=== PATIENT | male | born 1985 | race Caucasian/White ===

== ENCOUNTER 2017-10-26 19:28 | Emergency (ER) | payer SELFPAY ==
[~2017-10-26] VITALS: Ht 172.7 cm; Wt 108.3 kg
[2017-10-26 19:39] VITALS: TEMP 36.6; Ht 172.7 cm; Wt 108.3 kg
[2017-10-26] MEDS ORDERED: LIDOCAINE HCL 2% VISC SOLN 20 ML UDC PO STA (19:56)
[2017-10-26] MEDS ORDERED: ALUMINUM/MAGNESIUM SUSP 30 ML UDC PO STA (19:56)
[2017-10-26 20:36] LABS: BASO % 0.1 %; BASO ABS # 0.01 K/uL (0-0.2); EOS % 0.1 %; EOS ABS # 0.01 K/uL (0-0.5); HEMATOCRIT 46.8 % (42-52); IG# 0.04 K/uL (0.00-0.02); LYMPH ABS # 1.31 K/uL (1.2-3.4); MEAN CORPUSCULAR HEMOGLOBIN 30.5 pg (25-34); MEAN CORPUSCULAR HGB CONC 36.3 g/dl (32-36); MEAN PLATELET VOLUME 12.2 fL (7.4-10.4); MONO % 6.6 %; MONO ABS # 0.96 K/uL (0.11-0.59); NEUT % 83.9 %; NEUT ABS # 12.15 K/uL (1.4-6.5); PLATELET COUNT 207 K/uL (130-400); RED CELL DISTRIBUTION WIDTH CV 12.8 % (11.5-14.5); RED CELL DISTRIBUTION WIDTH SD 38.2 fL (36.4-46.3); WHITE BLOOD COUNT 14.48 K/uL (4.8-10.8)
[2017-10-26 20:45] LABS: PTT PATIENT 22.9 SECONDS (21.0-31.0)
[2017-10-26 20:55] LABS: ALBUMIN 4.8 gm/dl (3.4-5.0); CALCIUM 9.5 mg/dl (8.5-10.1); CREATININE 1.8 mg/dl (0.60-1.40); POTASSIUM 3.4 mmol/L (3.5-5.1); TOTAL PROTEIN 8.2 gm/dl (6.4-8.2)
--- NOTE | 2017-10-26 21:26 | DIAGNOSTIC IMAGING REPORT ---
BILIARY ULTRASOUND CLINICAL HISTORY: Epigastric pain COMPARISON STUDY: No previous studies for comparison. FINDINGS: The pancreas was not visualized due to overlying bowel gas shadowing. The liver was of increased echogenicity, likely secondary to hepatic steatosis. There is suspected focal fatty sparing adjacent to the gallbladder. The gallbladder appears sonographically normal. No stones are visualized. There is no gallbladder wall thickening and no evidence of pericholecystic fluid. There was no ductal dilatation. The common bile duct measures 3 mm. There is no right-sided hydronephrosis. IMPRESSION: 1. Nondiagnostic evaluation the pancreas 2. Ultrasonographically normal gallbladder. No evidence of ductal dilatation 3. Increased hepatic echogenicity, a nonspecific finding most often seen in hepatic steatosis Electronically signed by: Layton Whittaker M.D. 10/26/2017 9:25 PM Dictated Date/Time: 10/26/2017 9:24 PM
[2017-10-26] MEDS ORDERED: SODIUM CHLORIDE 0.9% 1000ML 1,000 ML IV STA (21:29)
[2017-10-26] MEDS ORDERED: FAMOTIDINE 20MG/5ML IV PUSH IV STA (21:51)
--- NOTE | 2017-10-26 21:56 | DIAGNOSTIC IMAGING REPORT ---
CHEST 2 VIEWS ROUTINE CLINICAL HISTORY: Chest and epigastric pain COMPARISON STUDY: 09/04/2009 FINDINGS: The cardiac and mediastinal contours are normal. There is no evidence of focal pulmonary consolidation. There is no evidence of failure. No pleural effusions are visualized.[ There is no free intraperitoneal air IMPRESSION: No active disease in the chest. Electronically signed by: Layton Whittaker M.D. 10/26/2017 9:54 PM Dictated Date/Time: 10/26/2017 9:54 PM
[2017-10-26 23:35] VITALS: BP 158/95; PULSE 89; O2SAT 97
--- NOTE | 2017-10-27 01:10 | EMERGENCY ROOM VISIT NOTE ---
History Report prepared by Che: Robert Mittal Under the Supervision of: Dr. Alexander Morales M.D. First contact with patient: 19:45 Chief Complaint: CHEST PAIN Stated Complaint: HIGH BP, CHEST PAIN History of Present Illness The patient is a 32 year old male who presents to the Emergency Room with complaints of discomfort in the upper abdomen along with light headedness and dizziness. The symptoms began a couple weeks ago and came back 5 days ago. The patient states that four days ago he went to [facility] and from there was sent to [facility] where they ran tests and blood work showing high blood pressure and low potassium. He left there with a prescription for Lisinopril and Celexa. He states fatty foods makes the discomfort worse but Pepcid AC relieves it, so he has been trying to cut back on fatty foods. He had similar symptoms in 2009 and was treated with Pepcid AC at that time. 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 He went over to see his neighbor who said he was very diaphoretic and pale so she took his blood pressure and it was 189/111. She gave him her daughter's Vasotec and 4 baby aspirin and came with him here. The patient states he has a family history of CAD and SC with his mother passing away at 45 years old from a SC, although he states he has never had a stress test. The patient denies any nausea, vomiting, or diarrhea, urinary symptoms, leg swelling and smoking tobacco. He denies any pain or discomfort in his chest. His epigastric pain does not radiate. Source of History: patient Onset: 5 days ago Position: abdomen Quality: other (Gas like) Timing: constant Modifying Factors (Relieving): eating Associated Symptoms: + SOB, + weakness, No nausea, No vomiting, No diarrhea , No urinary symptoms Review of Systems See HPI for pertinent positives & negatives. A total of 10 systems reviewed and were otherwise negative. Past Medical & Surgical Medical Problems: (1) Hypertension Family History FH: myocardial infarction Heart disease Social History Smoking Status: Never Smoker Occupation Status: employed Current/Historical Medications Miscellaneous Medications None (Patient States No Home Meds) Allergies Uncoded Allergies: NKDA (Allergy, Mild, 12/15/06) Physical Exam Vital Signs Date Time Temp Pulse Resp B/P (MAP) Pulse Ox O2 Delivery O2 Flow Rate FiO2 10/26/17 23:35 89 18 158/95 97 Room Air 10/26/17 23:19 99 10/26/17 22:14 99 18 142/88 98 Room Air 10/26/17 19:53 102 10/26/17 19:39 36.6 104 18 160/104 96 Room Air Physical Exam Constitutional: Vital signs reviewed. Eyes: Pupils are equal round reactive to light. Conjunctiva are noninjected. ENT: Pharynx is clear without erythema or exudate. Mucous membranes are moist. Neck supple without meningeal signs. Respiratory: Clear to auscultation bilaterally. Breath sounds are equal bilaterally. Cardiovascular: Regular rate and rhythm. No rubs or gallops. GI: Soft and nondistended. Epigastric tenderness, no Ji's sign. Bowel sounds are present. Musculoskeletal: No peripheral edema. No lower extremity tenderness. Integumentary: No cyanosis. Neurological: The patient is awake and alert. No focal deficits. Psychiatric: Very anxious appearing. Medical Decision & Procedures ER Provider Diagnostic Interpretation: Radiology results as stated below per my review and the radiologist's interpretation: BILIARY ULTRASOUND CLINICAL HISTORY: Epigastric pain COMPARISON STUDY: No previous studies for comparison. FINDINGS: The pancreas was not visualized due to overlying bowel gas shadowing. The liver was of increased echogenicity, likely secondary to hepatic steatosis. There is suspected focal fatty sparing adjacent to the gallbladder. The gallbladder appears sonographically normal. No stones are visualized. There is no gallbladder wall thickening and no evidence of pericholecystic fluid. There was no ductal dilatation. The common bile duct measures 3 mm. There is no right-sided hydronephrosis. IMPRESSION: 1. Nondiagnostic evaluation the pancreas 2. Ultrasonographically normal gallbladder. No evidence of ductal dilatation 3. Increased hepatic echogenicity, a nonspecific finding most often seen in hepatic steatosis Electronically signed by: Layton Whittaker M.D. 10/26/2017 9:25 PM Dictated Date/Time: 10/26/2017 9:24 PM CHEST 2 VIEWS ROUTINE CLINICAL HISTORY: Chest and epigastric pain COMPARISON STUDY: 09/04/2009 FINDINGS: The cardiac and mediastinal contours are normal. There is no evidence of focal pulmonary consolidation. There is no evidence of failure. No pleural effusions are visualized.[ There is no free intraperitoneal air IMPRESSION: No active disease in the chest. Electronically signed by: Layton Whittaker M.D. 10/26/2017 9:54 PM Dictated Date/Time: 10/26/2017 9:54 PM Laboratory Results 10/26/17 20:13 Red Blood Count 5.57, Mean Corpuscular Volume 84.0, Mean Corpuscular Hemoglobin 30.5, Mean Corpuscular Hemoglobin Concent 36.3, Mean Platelet Volume 12.2, Neutrophils (%) (Auto) 83.9, Lymphocytes (%) (Auto) 9.0, Monocytes (%) (Auto) 6.6, Eosinophils (%) (Auto) 0.1, Basophils (%) (Auto) 0.1, Neutrophils # (Auto) 12.15, Lymphocytes # (Auto) 1.31, Monocytes # (Auto) 0.96, Eosinophils # (Auto) 0.01, Basophils # (Auto) 0.01 10/26/17 20:13 Test 10/26/17 20:13 10/26/17 20:30 10/26/17 22:07 10/26/17 23:01 White Blood Count 14.48 K/uL (4.8-10.8) Red Blood Count 5.57 M/uL (4.7-6.1) Hemoglobin 17.0 g/dL (14.0-18.0) Hematocrit 46.8 % (42-52) Mean Corpuscular Volume 84.0 fL (80-100) Mean Corpuscular Hemoglobin 30.5 pg (25-34) Mean Corpuscular Hemoglobin Concent 36.3 g/dl (32-36) Platelet Count 207 K/uL (130-400) Mean Platelet Volume 12.2 fL (7.4-10.4) Neutrophils (%) (Auto) 83.9 % Lymphocytes (%) (Auto) 9.0 % Monocytes (%) (Auto) 6.6 % Eosinophils (%) (Auto) 0.1 % Basophils (%) (Auto) 0.1 % Neutrophils # (Auto) 12.15 K/uL (1.4-6.5) Lymphocytes # (Auto) 1.31 K/uL (1.2-3.4) Monocytes # (Auto) 0.96 K/uL (0.11-0.59) Eosinophils # (Auto) 0.01 K/uL (0-0.5) Basophils # (Auto) 0.01 K/uL (0-0.2) RDW Standard Deviation 38.2 fL (36.4-46.3) RDW Coefficient of Variation 12.8 % (11.5-14.5) Immature Granulocyte % (Auto) 0.3 % Immature Granulocyte # (Auto) 0.04 K/uL (0.00-0.02) Prothrombin Time 11.0 SECONDS (9.0-12.0) Prothromb Time International Ratio 1.0 (0.9-1.1) Activated Partial Thromboplast Time 22.9 SECONDS (21.0-31.0) Partial Thromboplastin Ratio 0.9 Anion Gap 15.0 mmol/L (3-11) Est Creatinine Clear Calc Drug Dose 70.3 ml/min Estimated GFR () 56.5 Estimated GFR (Non- 48.7 BUN/Creatinine Ratio 14.5 (10-20) Calcium Level 9.5 mg/dl (8.5-10.1) Total Bilirubin 1.1 mg/dl (0.2-1) Direct Bilirubin 0.3 mg/dl (0-0.2) Aspartate Amino Transf (AST/SGOT) 16 U/L (15-37) Alanine Aminotransferase (ALT/SGPT) 53 U/L (12-78) Alkaline Phosphatase 78 U/L (45-117) Total Creatine Kinase 114 U/L (39-308) Total Protein 8.2 gm/dl (6.4-8.2) Albumin 4.8 gm/dl (3.4-5.0) Lipase 84 U/L (73-393) Urine Color DK YELLOW Urine Appearance CLOUDY (CLEAR) Urine pH 5.0 (4.5-7.5) Urine Specific [place] 1.027 (1.000-1.030) Urine Protein 1+ (NEG) Urine Glucose (UA) NEG (NEG) Urine Ketones 3+ (NEG) Urine Occult Blood NEG (NEG) Urine Nitrite NEG (NEG) Urine Bilirubin NEG (NEG) Urine Urobilinogen NEG (NEG) Urine Leukocyte Esterase TRACE (NEG) Urine WBC (Auto) 1-5 /hpf (0-5) Urine RBC (Auto) 0-4 /hpf (0-4) Urine Hyaline Casts (Auto) >30 /lpf (0-5) Urine Epithelial Cells (Auto) >30 /lpf (0-5) Urine Bacteria (Auto) NEG (NEG) Urine Renal Epithelial Cells 0-5 /lpf (0-5) Urine Pathogenic Casts 1-5 GRANULAR CASTS /lpf (0) Urine Mucus PRESENT (NONE PRSENT) Venous Blood pH 7.51 (7.36-7.41) Venous Blood Partial Pressure CO2 26 mmHg (38.0-50.0) Venous Blood Partial Pressure O2 52 mmHg Venous Blood HCO3 20 mmol/L Venous Blood Oxygen Saturation 88.8 % Venous Blood Base Excess -0.8 mEq/L Bedside Troponin I < 0.030 ng/ml (0-0.045) Laboratory results as reviewed by me. Medications Administered Medications (Trade) Dose Ordered Sig/[place] Route Start Time Stop Time Status Last Admin Dose Admin Lidocaine HCl (Viscous Lidocaine 2% Soln) 10 ml NOW STAT PO 10/26/17 19:56 10/26/17 19:58 DC 10/26/17 20:09 10 ML Al Hydroxide/Mg Hydroxide (Maalox Susp) 30 ml NOW STAT PO 10/26/17 19:56 10/26/17 19:58 DC 10/26/17 20:09 30 ML Sodium Chloride 1,000 ml @ 999 mls/hr Q1H1M STAT IV 10/26/17 21:29 10/26/17 22:29 DC 10/26/17 22:10 999 MLS/HR Famotidine (Pepcid 20mg Iv Push) 20 mg ONE STAT IV 10/26/17 21:51 10/26/17 21:52 DC 10/26/17 22:09 20 MG ECG Per My Interpretation Indication: abdominal pain Rate (beats per minute): 96 Rhythm: normal sinus Findings: RBBB (Incomplete), other (No ST elevation, No PVC, Wavy baseline in leads V4-V6 limiting interpretation) Change: Repeat EKG: Normal Sinus Rhythm, rate of 99, Incomplete RBBB, No ST elevation, Biphasic T waves in leads V3-V6 Unchanged from August 2009 ED Course 1946: The patient was evaluated in room B11. A complete history and physical exam was performed. 2146: I reevaluated the patient and talked to him about the tests results. He states he is still experiencing gas pressure. 2237: I reevaluated the patient and he states he burps and is feeling better. I ordered a repeat EKG and Troponin. 2315: I checked on the patient and his epigastric pain is gone. We discussed the EKG results and I recommended he have an outpatient stress test due to his family history. I also recommended to have blood test repeated due to elevated creatinine. 2336: Upon reevaluation, the patient appeared to have improvement of his symptoms. I discussed tonight's findings with the patient. He verbalized agreement of the treatment plan. He was discharged home. Medical Decision This is a 32-year-old male who presents with epigastric abdominal pain. Differential diagnosis includes peptic ulcer disease, gastritis, cholelithiasis , cholecystitis, pancreatitis, cardiac. I did perform a limited focused review of portions of the patient's old chart on the electronic medical record. The patient has one recent pertinent visit to this hospital in 2009 for chest pain. He was discharged home after an unremarkable cardiac work up. I did evaluate the patient as noted above. The patient is presenting with epigastric abdominal pain intermittently. He had similar pain back in 2009 and was treated with Pepcid AC which seemed to work. He states that his pain is better after he takes Pepcid AC and is worse after eating certain types of food , especially fatty foods. He denies having any chest discomfort today. He states it is all localized to the epigastric region. IV access was established. The patient was placed on a continuous conference director. I did order and personally review the patient's 12-lead EKG and chest x-ray as described above. His twelve-lead EKG demonstrates some nonspecific T-wave changes in the lateral leads but this was present back in 2009. He also had a incomplete right bundle branch block which is also unchanged from 2010. Chest x -ray is unremarkable. I did order and review the patient's blood work as noted in the electronic medical record. Troponin 2 is negative. His creatinine is elevated at 1.8. He does have a low CO2 but he has been hyperventilating. The patient is quite anxious. VBG does not demonstrate any acidosis. I did order an ultrasound of the right upper quadrant. I did review the images myself as well as the radiology report as described above. I did treat the patient with a GI cocktail and Pepcid IV. On reevaluation the patient's discomfort is completely resolved. I did recommend he follow closely with his doctor for further evaluation. He was advised to continue taking Pepcid AC for his discomfort. He did state that he burped an x-ray and that seemed to make him feel better as well. He was told that he should consider having an outpatient cardiac stress test given his family history. He was also advised to have his doctor repeat his creatinine which is elevated today. He was also advised to drink plenty of fluids. He was discharged in good condition. Medication Reconcilliation Current Medication List: was personally reviewed by me Blood Pressure Screening Patient's blood pressure: Elevated blood pressure Blood pressure disposition: Referred to PCP Impression Primary Impression: Epigastric abdominal pain Additional Impression: Elevated serum creatinine Scribe Attestation The scribe's documentation has been prepared under my direct and personally reviewed by me in its entirety. I confirm that the note above accurately reflects all work, treatment, procedures, and medical decision making performed by me. Departure Information Dispostion Home / Self-Care Referrals No Doctor, Assigned (PCP) Forms Call Back Authorization, HOME CARE DOCUMENTATION FORM, IMPORTANT VISIT INFORMATION Patient Instructions My [facility] Additional Instructions You have been examined and treated today on an emergency basis only. This is not a substitute for, or an effort to provide, complete comprehensive medical care. It is impossible to recognize and treat all injuries or illnesses in a single emergency department visit. It is therefore important that you follow up closely with your physician. Call as soon as possible for an appointment. Talk to your doctor about obtaining a cardiac stress test as an outpatient and have him or her repeat your serum creatinine which was 1.8 today. Drink plenty of fluids. Return for worsening symptoms or if you develop fever, vomiting, chest pain, shortness of breath or any other concerning symptoms. Problem Qualifiers
== END 2017-10-26 23:20 | disposition home or self-care (01) ==
LOC: C.EDB 19:29
DX: R10.13 Epigastric pain (principal); R79.89 Other specified abnormal findings of blood chemistry; I10 Essential (primary) hypertension